=== PATIENT | female | born 1940 | race Asian ===

== ENCOUNTER 2025-08-03 17:31 | Emergency (ER) | payer OTHER ==
[~2025-08-03] VITALS: Ht 154.9 cm; Wt 43.1 kg
[2025-08-03 17:36] VITALS: TEMP 97.8
[2025-08-03 21:11] LABS: PLATELET COUNT (AUTO) 322 K/uL (150-450); RED BLOOD CELL COUNT(AUTO) 3.59 MIL/uL (4.0-5.2); RED CELL DISTRIBUTION WIDTH 14.8 % (11.5-15.0); WHITE BLOOD COUNT (AUTO) 4.5 K/uL (4.3-11.0)
[2025-08-03 21:22] LABS: CALCIUM, SERUM 8.2 mg/dL (8.5-10.1); CREATININE 0.6 mg/dL (0.6-1.3); SODIUM SERUM 137.0 mmol/L (136-145); UREA NITROGEN, BLOOD 6.0 mg/dL (7-18)
[2025-08-03 21:24] LABS: INR 1.01 (0.91-1.10)
[2025-08-04] MEDS ORDERED: ACETAMINOPHEN 325 MG TABLET PO PRN
[2025-08-04] MEDS ORDERED: Z GUARD REMEDY 4 OZ OINT TP PRN
[2025-08-04] MEDS ORDERED: ONDANSETRON HCL/PF 4 MG/2 ML VIAL IVP PRN
[2025-08-04] MEDS ORDERED: MAGNESIUM HYDROXIDE 30 ML UDC PO PRN
[2025-08-04] MEDS ORDERED: HYDROCODONE/APAP 5/325MG TABLET PO PRN
[2025-08-04] MEDS ORDERED: ENOXAPARIN SODIUM 40 MG/0.4 ML DISP.SYRIN SQ SCH (00:17)
[2025-08-04] MEDS ORDERED: POTASSIUM CHLORIDE 10 MEQ TABLET.SA PO ONE (00:30)
[2025-08-04 01:14] VITALS: BP 155/75; O2SAT 97
[2025-08-04] MEDS ORDERED: PANTOPRAZOLE 40 MG TABLET.DR PO SCH (07:30)
== END 2025-08-04 01:41 | disposition left against medical advice (07) ==
LOC: ER 17:35
DX: S30.0XXA Contusion of lower back and pelvis, initial encounter (principal); M25.551 Pain in right hip; I10 Essential (primary) hypertension; W01.0XXA Fall on same level from slipping, tripping and stumbling without subsequent striking against object, initial encounter; Y93.89 Activity, other specified; Y92.89 Other specified places as the place of occurrence of the external cause; Y99.8 Other external cause status
CPT/HCPCS: 36415; 71045-TC; 72131-TC; 73502; 73552; 80048-TC; 85025-TC; 85730-TC